=== PATIENT | female | born 1995 | race Hispanic/Latino ===

== ENCOUNTER 2018-10-08 17:53 | Inpatient (IN) | payer MEDICAID, OTHER ==
[~2018-10-08] VITALS: Ht 162.6 cm; Wt 118.8 kg
[~2018-10-08 17:53] MED LIST: PREN-196 PO
[2018-10-08] MEDS ORDERED: LACTATED RINGERS 1000ML 1,000 ML IV PRN (18:49)
[2018-10-08 18:59] LABS: MEAN CORPUSCULAR HEMOGLOBIN 26.2 pg (27.0-33.0); MEAN CORPUSCULAR HGB CONC 33.4 g/dL (32.0-36.0); MEAN CORPUSCULAR VOLUME 78.4 fL (79-99); NUCLEATED RED BLOOD CELLS 0.1 % (0.0-0.19); PLATELET COUNT (AUTO) 300 K/uL (130-400); RED BLOOD CELL COUNT(AUTO) 4.21 MIL/uL (4.00-5.50); RED CELL DISTRIBUTION WIDTH 14.9 % (11.0-15.5); WHITE BLOOD COUNT (AUTO) 9.6 K/uL (4.8-10.8)
[2018-10-08] MEDS ORDERED: OXYTOCIN 10 USP UNITS/ML 20 UNIT in LACTATED RINGERS 1000ML 1,000 ML IV SCH (19:00)
[2018-10-08] MEDS ORDERED: OXYTOCIN-LR 20 UNITS/1000 ML 1,000 ML IV ONE (19:07)
[2018-10-08 19:16] VITALS: BP 134/76
[2018-10-08] MEDS ORDERED: MEPERIDINE-PF 25 MG/ML SYG ONE (22:08)
[2018-10-08] MEDS ORDERED: PROMETHAZINE HCL 25 MG/ML 1ML AMPULE IM ONE (22:08)
[2018-10-08] MEDS ORDERED: PROMETHAZINE HCL 25 MG/ML 1ML AMPULE IM SCH (22:15)
[2018-10-08] MEDS ORDERED: MEPERIDINE-PF 25 MG/ML SYG IVP ONE (22:15)
[2018-10-08] MEDS ORDERED: OXYTOCIN-LR 20 UNITS/1000 ML 1,000 ML IV SCH (22:30)
[2018-10-08] MEDS ORDERED: LIDOCAINE 2%-EPI 1:200,000 20 ML VIAL IJ ONE (23:55)
[2018-10-09] MEDS ORDERED: ROPIVACAINE 0.2% 100ML VIAL 100 ML EP SCH
[2018-10-09] MEDS ORDERED: EPHEDRINE SULFATE 50 MG/ML AMPULE IVP PRN
[2018-10-09] MEDS ORDERED: LACTATED RINGERS 500 ML 500 ML IV PRN
[2018-10-09] MEDS ORDERED: NALOXONE HCL 0.4 MG/1 ML ML IV PRN
[2018-10-09] MEDS ORDERED: LIDOCAINE HCL/EPINEPHRINE 50 ML VIAL IJ SCH
[2018-10-09] MEDS ORDERED: OXYTOCIN 10 USP UNITS/ML ONE (05:48)
[2018-10-09] MEDS ORDERED: WITCH HAZEL 1 PAD TP PRN (07:30)
[2018-10-09] MEDS ORDERED: ACETAMINOPHEN 325 MG TAB PO PRN (07:30)
[2018-10-09] MEDS ORDERED: MEASLES/MUMPS/RUBELLA VACCINE, LIVE 0.5 ML/VIAL SQ PRN (07:30)
[2018-10-09] MEDS ORDERED: BENZOCAINE/LANOLIN/ALOE VERA 60 ML AEROSOL TP PRN (07:30)
[2018-10-09] MEDS ORDERED: DIPH,PERTUSS(ACELL),TET VAC/PF 0.5 ML VIAL IM PRN (07:30)
[2018-10-09] MEDS ORDERED: LANOLIN 30GM OINTMENT TP PRN (07:30)
[2018-10-09 07:52] VITALS: BP 118/54
[2018-10-09] MEDS: DOCUSATE SODIUM 100 MG CAP PO SCH ×2 (09:31→21:47)
[2018-10-09] MEDS: IBUPROFEN 800 MG TAB PO PRN ×2 (09:32→21:47)
[2018-10-09 11:25] VITALS: BP 107/50
[2018-10-09 15:52] VITALS: BP 98/56
[2018-10-09 19:26] VITALS: BP 131/85
[2018-10-09 23:51] VITALS: BP 103/57
[2018-10-10 03:55] VITALS: BP 111/63
[2018-10-10 05:46] LABS: HEMATOCRIT 29.8 % (36-48); MEAN CORPUSCULAR HGB CONC 33.9 g/dL (32.0-36.0); MEAN CORPUSCULAR VOLUME 79.7 fL (79-99); NUCLEATED RED BLOOD CELLS 0.1 % (0.0-0.19); PLATELET COUNT (AUTO) 238 K/uL (130-400); RED BLOOD CELL COUNT(AUTO) 3.74 MIL/uL (4.00-5.50); RED CELL DISTRIBUTION WIDTH 15.1 % (11.0-15.5); WHITE BLOOD COUNT (AUTO) 10.1 K/uL (4.8-10.8)
[2018-10-10 07:34] VITALS: BP 110/75
[2018-10-10 08:21] LABS: HEPATITIS Bs ANTIGEN SCREEN P Negative (Negative)
[2018-10-10] MEDS: IBUPROFEN 800 MG TAB PO PRN (09:14)
[2018-10-10] MEDS: DOCUSATE SODIUM 100 MG CAP PO SCH (09:14)
[2018-10-10 11:27] VITALS: BP 135/81
--- NOTE | 2018-10-10 11:40 | NUR ---
DISCHARGE PT LEFT UNIT VIA WHEELCHAIR, WITH BABY IN ARMS, ACCOMPANIED BY FAMILY. DENIED PAIN AND HAD NO COMPLAINTS. BABY STRAPPED IN CAR SEAT. PT AND BABY TRANSPORTED BY PERSONAL VEHICLE.
== END 2018-10-10 11:40 | disposition home or self-care (01) | DRG 807 ==
LOC: OBSVTOIN 17:53 → LDH 17:53 → WSH 10-09 07:40
PROVIDERS: ADMIT Obstetrics & Gynecology; ATTEND Obstetrics & Gynecology
PROC: 10E0XZZ Delivery of Products of Conception, External Approach (ICD-10-PCS; principal; 2018-10-10)
PROC: 3E0234Z Introduction of Serum, Toxoid and Vaccine into Muscle, Percutaneous Approach (ICD-10-PCS; 2018-10-10)
PROC: 3E0134Z Introduction of Serum, Toxoid and Vaccine into Subcutaneous Tissue, Percutaneous Approach (ICD-10-PCS; 2018-10-10)
PROC: 3E02340 Introduction of Influenza Vaccine into Muscle, Percutaneous Approach (ICD-10-PCS; 2018-10-10)
DX: O80 Encounter for full-term uncomplicated delivery (principal); Z37.0 Single live birth; Z3A.39 39 weeks gestation of pregnancy; Z23 Encounter for immunization
CPT/HCPCS: 36415; 85027; 86592; 86850; 86900; 86901; 87340; 90715; A4314; G0008; G0378; J2175; J2550; J2590; J3490; J7120; Q2035

== ENCOUNTER 2021-05-10 18:20 | Emergency (ER) | payer MEDICAID, OTHER ==
[~2021-05-10] VITALS: Ht 160 cm; Wt 65.8 kg
[2021-05-10 18:23] VITALS: BP 110/63
== END 2021-05-10 22:06 | disposition left against medical advice (07) ==
LOC: EDH 18:20
DX: R10.13 Epigastric pain (principal); Z53.21 Procedure and treatment not carried out due to patient leaving prior to being seen by health care provider

== ENCOUNTER 2021-05-11 09:32 | Inpatient (IN) | payer MEDICAID, OTHER ==
[~2021-05-11] VITALS: Ht 160 cm; Wt 61.7 kg
[2021-05-11 10:11] LABS: BASOPHILS % (AUTO) 0.4 % (0.0-5.0); EOSINOPHILS % (AUTO) 0.6 % (0.0-8.0); LYMPHOCYTES % (AUTO) 24.6 % (21.0-51.0); MEAN CORPUSCULAR HEMOGLOBIN 29.2 pg (27.0-33.0); MEAN CORPUSCULAR HGB CONC 33.4 g/dL (32.0-36.0); MEAN CORPUSCULAR VOLUME 87.4 fL (79-99); MONOCYTES % (AUTO) 8.5 % (3.0-13.0); NEUTROPHILS % (AUTO) 65.6 % (40.0-77.0); PLATELET COUNT (AUTO) 250 K/uL (130-400); RED BLOOD CELL COUNT(AUTO) 4.35 MIL/uL (4.00-5.50); RED CELL DISTRIBUTION WIDTH 13.4 % (11.0-15.5); WHITE BLOOD COUNT (AUTO) 9.1 K/uL (4.8-10.8)
[2021-05-11 10:12] LABS: APPEARANCE,URINE Clear (CLEAR); BILIRUBIN,URINE Small (NEGATIVE); COLOR,URINE Dark Yellow (YELLOW); GLUCOSE, URINE (UA) Negative (NEGATIVE); HCG,QUAL RESULT NEGATIVE (NEGATIVE); KETONES,URINE Negative (NEGATIVE); LEUKOCYTE ESTERASE ,URINE Negative (NEGATIVE); NITRATE,URINE Negative (NEGATIVE); OCCULT BLOOD,URINE Negative (NEGATIVE); PROTEIN,URINE Negative (NEGATIVE)
[2021-05-11 10:17] LABS: CREATININE 0.5 mg/dL (0.5-1.5); POTASSIUM 3.9 mmol/L (3.5-5.1)
[2021-05-11 10:22] LABS: ALBUMIN 4.1 g/dL (3.5-5.0); BILIRUBIN,TOTAL 2.9 mg/dL (0.2-1.0); TOTAL PROTEIN, SERUM 8.3 g/dL (6.0-8.3)
[2021-05-11] MEDS ORDERED: ONDANSETRON 4MG INJ IVP ONE (11:00)
[2021-05-11] MEDS ORDERED: 0.9%NACL 1000ML 525 ML IV ONE (11:00)
[2021-05-11] MEDS ORDERED: MORPHINE 4 MG SYG IV ONE (11:00)
[2021-05-11 11:01] LABS: BACTERIA,URINE Rare /HPF (None Seen); RBC,URINE 0-1 /HPF (0-1); SQUAMOUS EPITHELIAL CELL,UR Rare /HPF (0-2); WBC,URINE 0-1 /HPF (0-1)
[2021-05-11] MEDS ORDERED: ZOSYN 3.375GM+NS 50ML 3.38 GM in 0.9%NACL 50ML 50 ML IV STA (14:25)
[2021-05-11] MEDS ORDERED: ZOSYN 3.375GM+NS 50ML 50 ML ONE (14:41)
[2021-05-11] MEDS ORDERED: 0.9%NACL 50ML 50 ML IV ONE (14:42)
[2021-05-11] MEDS ORDERED: NITROGLYCERIN 0.4 MG SL TAB SL PRN (16:30)
[2021-05-11] MEDS ORDERED: ONDANSETRON 4MG INJ IV PRN (16:30)
[2021-05-11] MEDS ORDERED: LACTATED RINGERS 1000ML 1,000 ML IV SCH (16:30)
[2021-05-11 17:26] LABS: INR 1.07 (0.85-1.15); PROTHROMBIN TIME 11.6 SEC (9.6-11.6)
[2021-05-11 17:27] LABS: LACTATE DEHYDROGENASE 172 U/L (81-234); PARTIAL THROMBOPLASTIN TIME 27.6 SEC (26.3-35.5)
[2021-05-11 17:29] LABS: CHOLESTEROL 129 mg/dL (<200); HDL CHOLESTEROL 56 mg/dL (35-85); LDL DIRECT 65 mg/dL (0-99); TRIGLYCERIDES 73 mg/dL (30-200)
[2021-05-11 17:32] LABS: CRP QUANTITATIVE < 2.00 mg/L (0.00-9.0)
[2021-05-11] MEDS: LACTATED RINGERS 1000ML 1,000 ML IV SCH ×2 (18:24→21:56)
[2021-05-11] MEDS: MORPHINE 4 MG SYG IV PRN (18:38)
[2021-05-11] MEDS: ZOSYN 3.375GM+NS 50ML 50 ML IV SCH (21:56)
[2021-05-11] MEDS: FAMOTIDINE 20MG VIAL IV SCH (21:56)
[2021-05-12] MEDS: MORPHINE 2 MG SYG IV PRN ×2 (02:54→12:21)
[2021-05-12] MEDS: LACTATED RINGERS 1000ML 1,000 ML IV SCH ×3 (02:54→14:28)
[2021-05-12] MEDS: ZOSYN 3.375GM+NS 50ML 50 ML IV SCH ×3 (05:45→20:36)
[2021-05-12] MEDS: MORPHINE 4 MG SYG IV PRN (09:46)
[2021-05-12] MEDS: FAMOTIDINE 20MG VIAL IV SCH ×2 (09:46→20:36)
[2021-05-12 09:50] LABS: BASOPHILS % (AUTO) 0.7 % (0.0-5.0); EOSINOPHILS % (AUTO) 0.8 % (0.0-8.0); HEMATOCRIT 35.6 % (36-48); LYMPHOCYTES % (AUTO) 31.9 % (21.0-51.0); MEAN CORPUSCULAR HEMOGLOBIN 29.6 pg (27.0-33.0); MEAN CORPUSCULAR HGB CONC 33.1 g/dL (32.0-36.0); MEAN CORPUSCULAR VOLUME 89.4 fL (79-99); MONOCYTES % (AUTO) 6.2 % (3.0-13.0); NEUTROPHILS % (AUTO) 60.1 % (40.0-77.0); PLATELET COUNT (AUTO) 202 K/uL (130-400); RED BLOOD CELL COUNT(AUTO) 3.98 MIL/uL (4.00-5.50); RED CELL DISTRIBUTION WIDTH 13.3 % (11.0-15.5); WHITE BLOOD COUNT (AUTO) 7.6 K/uL (4.8-10.8)
[2021-05-12 10:07] LABS: ALBUMIN 3.8 g/dL (3.5-5.0); BILIRUBIN,DIRECT 0.4 mg/dL (0.0-0.3); BILIRUBIN,TOTAL 1.2 mg/dL (0.2-1.0); CREATININE 0.5 mg/dL (0.5-1.5); POTASSIUM 3.8 mmol/L (3.5-5.1); TOTAL PROTEIN, SERUM 7.6 g/dL (6.0-8.3)
[2021-05-12 11:30] VITALS: BP 132/66
[2021-05-12 16:00] VITALS: BP 121/67
[2021-05-12 19:22] VITALS: BP 115/69
[2021-05-13] VITALS (7 sets, daily range): BP systolic 102–117; BP diastolic 53–76
[2021-05-13] MEDS: ZOSYN 3.375GM+NS 50ML 50 ML IV SCH ×3 (03:55→20:09)
[2021-05-13] MEDS: LACTATED RINGERS 1000ML 1,000 ML IV SCH ×2 (03:56→10:29)
[2021-05-13] MEDS: MORPHINE 2 MG SYG IV PRN (03:56)
[2021-05-13 04:50] LABS: MEAN CORPUSCULAR HEMOGLOBIN 29.4 pg (27.0-33.0); MEAN CORPUSCULAR HGB CONC 33.2 g/dL (32.0-36.0); MEAN CORPUSCULAR VOLUME 88.5 fL (79-99); RED BLOOD CELL COUNT(AUTO) 3.84 MIL/uL (4.00-5.50); RED CELL DISTRIBUTION WIDTH 13.2 % (11.0-15.5); WHITE BLOOD COUNT (AUTO) 7.8 K/uL (4.8-10.8)
[2021-05-13 05:09] LABS: AMYLASE 91 U/L (25-115); LIPASE 253 U/L (114-286)
[2021-05-13 05:58] LABS: ALBUMIN 3.5 g/dL (3.5-5.0); BILIRUBIN,TOTAL 1.2 mg/dL (0.2-1.0); CREATININE 0.6 mg/dL (0.5-1.5); POTASSIUM 3.8 mmol/L (3.5-5.1); TOTAL PROTEIN, SERUM 7.3 g/dL (6.0-8.3)
[2021-05-13] MEDS: FAMOTIDINE 20MG VIAL IV SCH ×2 (09:36→20:09)
[2021-05-13] MEDS: KETOROLAC 15MG/ML VIAL (15MG/ML) IV PRN (20:17)
[2021-05-14] MEDS: LACTATED RINGERS 1000ML 1,000 ML IV SCH ×3 (01:04→16:38)
[2021-05-14 03:21] VITALS: BP 111/60
[2021-05-14] MEDS: ZOSYN 3.375GM+NS 50ML 50 ML IV SCH ×3 (04:41→21:29)
[2021-05-14 04:52] LABS: HEMATOCRIT 34.6 % (36-48); MEAN CORPUSCULAR HEMOGLOBIN 29.5 pg (27.0-33.0); MEAN CORPUSCULAR HGB CONC 33.2 g/dL (32.0-36.0); MEAN CORPUSCULAR VOLUME 88.7 fL (79-99); PLATELET COUNT (AUTO) 204 K/uL (130-400); RED CELL DISTRIBUTION WIDTH 13.2 % (11.0-15.5); WHITE BLOOD COUNT (AUTO) 7.4 K/uL (4.8-10.8)
[2021-05-14 05:08] LABS: AMYLASE 59 U/L (25-115); LIPASE 183 U/L (114-286)
[2021-05-14 06:24] LABS: EOSINOPHILS % (MANUAL) 4 % (1-6); LYMPHOCYTES % (MANUAL) 42 % (22-44); MAN.DIFF COMMENT-IMPRESSION MANUAL DIFFERENTIAL; MONOCYTES % (MANUAL) 6 % (2-9); PLATELET MORPHOLOGY COMMENT ADEQUATE; REACTIVE LYMPHOCYTES 4 % (0-0); SEGMENTED NEUTROPHILS % 44 % (40-70)
[2021-05-14 06:29] LABS: ALBUMIN 3.5 g/dL (3.5-5.0); BILIRUBIN,TOTAL 1.1 mg/dL (0.2-1.0); CREATININE 0.5 mg/dL (0.5-1.5); POTASSIUM 3.5 mmol/L (3.5-5.1); TOTAL PROTEIN, SERUM 7.1 g/dL (6.0-8.3)
[2021-05-14 07:30] VITALS: BP 109/65
[2021-05-14] MEDS: FAMOTIDINE 20MG VIAL IV SCH ×2 (10:04→21:29)
[2021-05-14 11:30] VITALS: BP 129/79
[2021-05-14 15:35] VITALS: BP 146/72
[2021-05-14 19:42] VITALS: BP 137/76
[2021-05-14] MEDS: KETOROLAC 15MG/ML VIAL (15MG/ML) IV PRN (21:32)
[2021-05-14 23:18] VITALS: BP 137/91
[2021-05-15] VITALS (21 sets, daily range): BP systolic 104–157; BP diastolic 59–89
[2021-05-15] MEDS: LACTATED RINGERS 1000ML 1,000 ML IV SCH ×3 (02:29→12:29)
[2021-05-15] MEDS: ZOSYN 3.375GM+NS 50ML 50 ML IV SCH ×3 (04:17→20:47)
[2021-05-15 06:07] LABS: BASOPHILS % (AUTO) 0.5 % (0.0-5.0); EOSINOPHILS % (AUTO) 1.1 % (0.0-8.0); HEMATOCRIT 35.8 % (36-48); LYMPHOCYTES % (AUTO) 37.5 % (21.0-51.0); MEAN CORPUSCULAR HEMOGLOBIN 29.5 pg (27.0-33.0); MEAN CORPUSCULAR HGB CONC 33.8 g/dL (32.0-36.0); MEAN CORPUSCULAR VOLUME 87.3 fL (79-99); MONOCYTES % (AUTO) 9.6 % (3.0-13.0); PLATELET COUNT (AUTO) 221 K/uL (130-400); RED CELL DISTRIBUTION WIDTH 13.2 % (11.0-15.5); WHITE BLOOD COUNT (AUTO) 7.6 K/uL (4.8-10.8)
[2021-05-15 06:27] LABS: ALBUMIN 3.9 g/dL (3.5-5.0); BILIRUBIN,TOTAL 1.1 mg/dL (0.2-1.0); CREATININE 0.7 mg/dL (0.5-1.5); POTASSIUM 3.8 mmol/L (3.5-5.1); TOTAL PROTEIN, SERUM 7.8 g/dL (6.0-8.3)
[2021-05-15] MEDS ORDERED: BUPIVACAINE/PF 0.25% 30ML VIAL IJ ONE (08:40)
[2021-05-15] MEDS ORDERED: LIDOCAINE HCL/EPINEPHRINE 30 ML VIAL IJ ONE (08:40)
[2021-05-15] MEDS ORDERED: LIDOCAINE PF 100MG/5ML (2%) SYRINGE 5ML ONE (09:02)
[2021-05-15] MEDS ORDERED: ROCURONIUM 10MG/1ML SYR 10 MG/ML ML ONE (09:03)
[2021-05-15] MEDS ORDERED: PROPOFOL 10 MG/ML 20ML VIAL IV ONE (09:03)
[2021-05-15] MEDS ORDERED: MEPERIDINE-PF 25 MG/ML SYG ONE ×2 (09:03→11:16)
[2021-05-15] MEDS ORDERED: CEFAZOLIN SODIUM 1 GM VIAL ONE (09:08)
[2021-05-15] MEDS ORDERED: MIDAZOLAM HCL 1 MG/ML 2ML VIAL ONE (09:44)
[2021-05-15] MEDS ORDERED: FENTANYL CITRATE PF 50 MCG/1 ML 2ML VIAL ONE (09:44)
[2021-05-15] MEDS ORDERED: GLYCOPYRROLATE 1 MG/5 ML SYRINGE ONE (09:44)
[2021-05-15] MEDS ORDERED: NEOSTIGMINE 5MG/5ML SYR IV ONE (09:44)
[2021-05-15] MEDS ORDERED: ONDANSETRON 4MG INJ ONE (09:45)
[2021-05-15] MEDS ORDERED: KETOROLAC 30MG VIAL (30MG/ML) ONE (11:33)
[2021-05-15] MEDS ORDERED: OXYCODONE/ACETAMIN 5/325MG TAB PO PRN (12:30)
[2021-05-15] MEDS: MORPHINE 2 MG SYG IV PRN ×2 (12:44→20:47)
[2021-05-15] MEDS: FAMOTIDINE 20MG VIAL IV SCH (20:47)
[2021-05-16] MEDS: MORPHINE 2 MG SYG IV PRN ×2 (00:17→05:43)
[2021-05-16 04:09] VITALS: BP 103/60
[2021-05-16] MEDS: ZOSYN 3.375GM+NS 50ML 50 ML IV SCH ×2 (05:40→13:00)
[2021-05-16] MEDS: LACTATED RINGERS 1000ML 1,000 ML IV SCH ×2 (05:44→08:29)
[2021-05-16 06:28] LABS: BASOPHILS % (AUTO) 0.5 % (0.0-5.0); HEMATOCRIT 33.2 % (36-48); LYMPHOCYTES % (AUTO) 30.9 % (21.0-51.0); MEAN CORPUSCULAR HEMOGLOBIN 29.1 pg (27.0-33.0); MEAN CORPUSCULAR HGB CONC 32.8 g/dL (32.0-36.0); MEAN CORPUSCULAR VOLUME 88.5 fL (79-99); MONOCYTES % (AUTO) 9.7 % (3.0-13.0); NEUTROPHILS % (AUTO) 57.6 % (40.0-77.0); PLATELET COUNT (AUTO) 195 K/uL (130-400); RED BLOOD CELL COUNT(AUTO) 3.75 MIL/uL (4.00-5.50); RED CELL DISTRIBUTION WIDTH 13.2 % (11.0-15.5)
[2021-05-16 06:45] LABS: ALBUMIN 3.5 g/dL (3.5-5.0); BILIRUBIN,TOTAL 1.2 mg/dL (0.2-1.0); CREATININE 0.6 mg/dL (0.5-1.5); POTASSIUM 3.8 mmol/L (3.5-5.1); TOTAL PROTEIN, SERUM 6.9 g/dL (6.0-8.3)
[2021-05-16 07:45] VITALS: BP 127/79
[2021-05-16] MEDS: FAMOTIDINE 20MG VIAL IV SCH (09:18)
[2021-05-16 12:00] VITALS: BP 119/67
[2021-05-16] MEDS ORDERED: POLYETHYLENE GLYCOL 3350 17 GM POWD.PACK PO SCH (13:00)
[2021-05-16 16:00] VITALS: BP 118/71
== END 2021-05-16 18:30 | disposition home or self-care (01) | DRG 417 ==
LOC: EDH 09:32 → EDHIP 09:33 → 3BH 05-12 11:19
PROVIDERS: ADMIT Internal Medicine; ATTEND Internal Medicine
PROC: 0FT44ZZ Resection of Gallbladder, Percutaneous Endoscopic Approach (ICD-10-PCS; principal; 2021-05-15 10:25)
DX: K80.00 Calculus of gallbladder with acute cholecystitis without obstruction (principal); K85.10 Biliary acute pancreatitis without necrosis or infection; R79.89 Other specified abnormal findings of blood chemistry; K75.89 Other specified inflammatory liver diseases; Z20.822 Contact with and (suspected) exposure to COVID-19; Z83.3 Family history of diabetes mellitus; Z82.49 Family history of ischemic heart disease and other diseases of the circulatory system
CPT/HCPCS: 36415; 71045; 74181; 76705; 80053; 80061; 81001; 81025; 82150; 82247; 82248; 83615; 83690; 85025; 85027; 85610; 85730; 86140; 87635; G0378; J0690; J1885; J2001; J2175; J2250; J2270; J2405; J2543; J2704; J2710; J3010; J3490; J7030; J7120